=== PATIENT | female | born 1955 | race Caucasian/White ===

== ENCOUNTER 2017-02-02 15:07 | Emergency (ER) | payer MEDICARE ==
[2017-02-02 16:18] LABS: Hematocrit 41 % (35-47); Hemoglobin 13.4 g/dl (12.0-16.0); Mean Corpuscular HGB Conc 33 g/dl (31-36); Mean Corpuscular Hemoglobin 28 pg (27-31); Mean Corpuscular Volume 86 fL (80-97); Mean Platelet Volume 8 um3 (7.4-10.4); Red Blood Count 4.73 10^6/ul (4.0-5.4); Red Cell Distribution Width 14 % (10.5-15)
--- NOTE | 2017-02-02 16:32 | RAD ---
HISTORY: Chest pain COMPARISONS: June 28, 2014 VIEWS:1: Single frontal portable view of the chest at 4:16 PM FINDINGS: LINES AND TUBES: None. CARDIOMEDIASTINAL SILHOUETTE: The cardiomediastinal silhouette is normal for portable technique. PLEURA: The costophrenic angles are sharp. No pleural abnormalities are noted. LUNG PARENCHYMA: The lungs are clear. ABDOMEN: The upper abdomen is clear. There is no subphrenic gas. BONES AND SOFT TISSUES: The patient is status post spinal stabilization surgery IMPRESSION: NO ACTIVE CARDIOPULMONARY DISEASE.
[2017-02-02 16:33] LABS: Albumin 3.5 g/dL (3.2-5.2); BUN/Creatinine Ratio 19.5 (8-20); Calcium 9.3 mg/dL (8.6-10.3); EGFR African American 62.5 (>60); EGFR Non-African American 48.6 (>60); Globulin 2.5 g/dL (2-4); Magnesium 1.8 mg/dL (1.9-2.7); Potassium 3.1 mmol/L (3.5-5.0); Total Bilirubin 0.9 mg/dL (0.2-1.0)
[2017-02-02] MEDS ORDERED: Magnesium Oxide TAB* 400 MG PO ONE ×2 (16:41→18:22)
[2017-02-02 18:02] LABS: T4 7.74 mcg/mL (6.09-12.23)
[2017-02-02 18:03] LABS: TSH (Thyroid Stimulating Horm) 2.94 mcIU/mL (0.34-5.60)
[2017-02-02] MEDS ORDERED: Potassium Chlor TAB* 20 MEQ TAB.ER PO ONE (18:22)
[2017-02-02 18:49] VITALS: BP 124/83
--- NOTE | 2017-02-02 18:54 | ED ---
All Sanchez Billy, scribed for Blade Blair MD on 02/02/17 at 1530 . HPI Chest Pain - HPI Summary HPI Summary: Patient is a 61 year-old female coming to [facility] for evaluation of chest heaviness/pressure since 0800 this morning. She also reports milds shortness of breath and nausea, but no vomiting. At this time, her chest pressure has improved; it was 7/10 at onset, but feels much better now. However, she feels pressure in her head, severity 9/10. She was recently tapered off of prednisone , and she reports that she has had similar episodes in the past when she stops prednisone, but today's symptoms are the worst that they have ever been. - History of Current Complaint Chief Complaint: EDChestPainROMI Time Seen by Provider: 02/02/17 15:25 Hx Obtained From: Patient Onset/Duration: Started Hours Ago Timing: Constant Initial Severity: Moderate Current Severity: Moderate Pain Intensity: 7 Pain Scale Used: 0-10 Numeric Character: Heaviness, Pressure/Squeezing Aggravating Factor(s): Nothing Alleviating Factor(s): Nothing Associated Signs and Symptoms: Positive: Chest Pain, Headaches, Shortness of Breath, Nausea. Negative: Vomiting - Allergy/Home Medications Allergies/Adverse Reactions: Allergies Allergy/AdvReac Type Severity Reaction Status Date / Time Hydrocodone Allergy Rash Verified 02/02/17 15:13 Tramadol [From Ultram] Allergy itch Verified 02/02/17 15:13 AGUSTO Inhibitors AdvReac Itching Verified 02/02/17 15:13 PMH/Surg Hx/FS Hx/Imm Hx Endocrine/Hematology History: Denies: Hx Diabetes, Hx Thyroid Disease Cardiovascular History: Reports: Hx Angina - PRESSURE, Hx Hypercholesterolemia, Hx Hypertension Denies: Hx Myocardial Infarction, Hx Pacemaker/ICD Respiratory History: Reports: Hx Asthma - Seasonal Denies: Hx Chronic Obstructive Pulmonary Disease (COPD) GI History: Reports: Hx Gastroesophageal Reflux Disease, Hx Irritable Bowel Denies: Hx Ulcer, Other GI Disorders History: Reports: Hx Kidney Stones, Other Problems/Disorders - hx stones most recent 2 yrs ago Musculoskeletal History: Reports: Hx Back Problems Sensory History: Reports: Hx Contacts or Glasses, Hx Hearing Aid Opthamlomology History: Reports: Hx Contacts or Glasses Neurological History: Reports: Other Neuro Impairments/Disorders Psychiatric History: Denies: Hx Panic Disorder - Surgical History Surgery Procedure, Year, and Place: tubal ligation 18, stent placement for kidney stones,tubes in ears. Back surgery, T9-L5 for flat back syndrome Infectious Disease History: No Infectious Disease History: Denies: Hx Hepatitis, Hx Human Immunodeficiency Virus (HIV), Traveled Outside the [place] in Last 30 Days - Family History Known Family History: Negative: Hypertension, Diabetes - Social History Alcohol Use: None Substance Use Type: Reports: None Smoking Status (MU): Never Smoked Tobacco Review of Systems Negative: Skin Diaphoresis Positive: Chest Pain Positive: Shortness Of Breath Positive: Nausea. Negative: Vomiting, Diarrhea Positive: Headache All Other Systems Reviewed And Are Negative: Yes Physical Exam - Summary Physical Exam Summary: VITAL SIGNS: Reviewed. GENERAL: Patient is a well developed and nourished female who is lying comfortable in the stretcher. Patient is not in any acute respiratory distress. HEAD AND FACE: No signs of trauma. No ecchymosis, hematomas or skull depressions. No sinus tenderness. EYES: PERRLA, EOMI x 2, No injected conjunctiva, no nystagmus. EARS: Hearing grossly intact. Ear canals and tympanic membranes are within normal limits. MOUTH: Oropharynx within normal limits. NECK: Supple, trachea is midline, no adenopathy, no JVD, no carotid bruit, no c- spine tenderness, neck with full ROM. CHEST: Symmetric, no tenderness at palpation LUNGS: Clear to auscultation bilaterally. No wheezing or crackles. CVS: Regular rate and rhythm, S1 and S2 present, no murmurs or gallops appreciated. ABDOMEN: Soft, non-tender. No signs of distention. No rebound no guarding, and no masses palpated. Bowel sounds are normal. EXTREMITIES: FROM in all major joints, no edema, no cyanosis or clubbing. NEURO: Alert and oriented x 3. No acute neurological deficits. Speech is normal and follows commands. SKIN: Dry and warm Triage Information Reviewed: Yes Vital Signs On Initial Exam: Initial Vitals Temp Pulse Resp BP Pulse Ox 98.2 F 85 18 114/72 100 02/02/17 15:09 02/02/17 15:09 02/02/17 15:09 02/02/17 15:02/02/17 15:09 Vital Signs Reviewed: Yes Diagnostics - Vital Signs Vital Signs Temp Pulse Resp BP Pulse Ox 02/02/17 15:09 98.2 F 85 18 114/72 100 - Laboratory Lab Results: Lab Results 02/02/17 02/02/17 02/02/17 Range/Units 16:06 16:06 16:06 WBC 13.0 H (3.5-10.8) 10^3/ul RBC 4.73 (4.0-5.4) 10^6/ul Hgb 13.4 (12.0-16.0) g/dl Hct 41 (35-47) % MCV 86 (80-97) fL MCH 28 (27-31) pg MCHC 33 (31-36) g/dl RDW 14 (10.5-15) % Plt Count 282 (150-450) 10^3/ul MPV 8 (7.4-10.4) um3 Neut % (Auto) 71.6 (38-83) % Lymph % (Auto) 16.6 L (25-47) % [place] % (Auto) 10.6 H (1-9) % Eos % (Auto) 0.9 (0-6) % Baso % (Auto) 0.3 (0-2) % Absolute Neuts (auto) 9.3 H (1.5-7.7) 10^3/ul Absolute Lymphs (auto) 2.2 (1.0-4.8) 10^3/ul Absolute Monos (auto) 1.4 H (0-0.8) 10^3/ul Absolute Eos (auto) 0.1 (0-0.6) 10^3/ul Absolute Basos (auto) 0 (0-0.2) 10^3/ul Absolute Nucleated RBC 0 10^3/ul Nucleated RBC % 0 Sodium 137 (133-145) mmol/L Potassium 3.1 L (3.5-5.0) mmol/L Chloride 100 L (101-111) mmol/L Carbon Dioxide 31 (22-32) mmol/L Anion Gap 6 (2-11) mmol/L BUN 22 (6-24) mg/dL Creatinine 1.13 H (0.51-0.95) mg/dL Est GFR ( Amer) 62.5 (>60) Est GFR (Non-Af Amer) 48.6 (>60) BUN/Creatinine Ratio 19.5 (8-20) Glucose 103 H (70-100) mg/dL Lactic Acid 0.9 (0.5-2.0) mmol/L Calcium 9.3 (8.6-10.3) mg/dL Magnesium 1.8 L (1.9-2.7) mg/dL Total Bilirubin 0.90 (0.2-1.0) mg/dL AST 11 L (13-39) U/L ALT 12 (7-52) U/L Alkaline Phosphatase 51 (34-104) U/L Total Creatine Kinase 29 (10-223) U/L CK-MB (CK-2) 1.3 (0.6-6.3) ng/mL Troponin I 0.00 (<0.04) ng/mL B-Natriuretic Peptide ( - 100) pg/mL Total Protein 6.0 L (6.4-8.9) g/dL Albumin 3.5 (3.2-5.2) g/dL Globulin 2.5 (2-4) g/dL Albumin/Globulin Ratio 1.4 (1-3) TSH Pending Thyroxine (T4) Pending 02/02/17 Range/Units 16:06 WBC (3.5-10.8) 10^3/ul RBC (4.0-5.4) 10^6/ul Hgb (12.0-16.0) g/dl Hct (35-47) % MCV (80-97) fL MCH (27-31) pg MCHC (31-36) g/dl RDW (10.5-15) % Plt Count (150-450) 10^3/ul MPV (7.4-10.4) um3 Neut % (Auto) (38-83) % Lymph % (Auto) (25-47) % [place] % (Auto) (1-9) % Eos % (Auto) (0-6) % Baso % (Auto) (0-2) % Absolute Neuts (auto) (1.5-7.7) 10^3/ul Absolute Lymphs (auto) (1.0-4.8) 10^3/ul Absolute Monos (auto) (0-0.8) 10^3/ul Absolute Eos (auto) (0-0.6) 10^3/ul Absolute Basos (auto) (0-0.2) 10^3/ul Absolute Nucleated RBC 10^3/ul Nucleated RBC % Sodium (133-145) mmol/L Potassium (3.5-5.0) mmol/L Chloride (101-111) mmol/L Carbon Dioxide (22-32) mmol/L Anion Gap (2-11) mmol/L BUN (6-24) mg/dL Creatinine (0.51-0.95) mg/dL Est GFR ( Amer) (>60) Est GFR (Non-Af Amer) (>60) BUN/Creatinine Ratio (8-20) Glucose (70-100) mg/dL Lactic Acid (0.5-2.0) mmol/L Calcium (8.6-10.3) mg/dL Magnesium (1.9-2.7) mg/dL Total Bilirubin (0.2-1.0) mg/dL AST (13-39) U/L ALT (7-52) U/L Alkaline Phosphatase (34-104) U/L Total Creatine Kinase (10-223) U/L CK-MB (CK-2) (0.6-6.3) ng/mL Troponin I (<0.04) ng/mL B-Natriuretic Peptide 13 ( - 100) pg/mL Total Protein (6.4-8.9) g/dL Albumin (3.2-5.2) g/dL Globulin (2-4) g/dL Albumin/Globulin Ratio (1-3) TSH Thyroxine (T4) Result Diagrams: 02/02/17 16:06 02/02/17 16:06 Lab Statement: Any lab studies that have been ordered have been reviewed, and results considered in the medical decision making process. - Radiology CXR Xray Interpretation: No Acute Changes Radiology Interpretation Completed By: Radiologist - EKG 1795 EKG Interpretation: NSR 71 bpm, no STEMI Chest Pain Course/Dx - Course Assessment/Plan: Patient is a 61 year-old female coming to [facility] for evaluation of chest heaviness/pressure since 0800 this morning. She also reports milds shortness of breath and nausea, but no vomiting. At this time, her chest pressure has improved; it was 7/10 at onset, but feels much better now. However , she feels pressure in her head, severity 9/10. She was recently tapered off of prednisone, and she reports that she has had similar episodes in the past when she stops prednisone, but today's symptoms are the worst that they have ever been. Bloodwork WNL except for WBC of 13, potassium level of 3.1, creatinine of 1.1, glucose of 103. Troponin is 0.00. Second troponin is also 0.00. CXR shows no active cardiopulmonary disease. The patient reported that her symptoms are similar to when she has previously taken off of steroids, and since troponin is negative, I do not believe her symptoms are associated with ACS. She is asymptomatic at this point. Therefore, she will be discharged home to follow up with PCP. I discussed all the findings and test results with the patient. Patient was instructed to return to the emergency room immediately if any of the symptoms return or worsens. Plan of care was discussed with the patient and understands and agrees. All questions were answered at patient satisfaction. There were no further complaints or concerns. Lung exam before discharge: CTA B/L. Good air exchange. No wheezing or crackles heard. CVS: S1 and S2 present. No murmurs appreciated. Patient is alert and oriented x 3. Patient is hemodynamically stable. Patient will be discharged home with follow up PCP in the next 2-3 days - Chest Pain Differential Diagnosis/HQI/PQRI: Acute ID, ACS, Angina, CHF, Chest Wall, GI Disease, Lower Respiratory Infection - Diagnoses Provider Diagnoses: Atypical chest pain Discharge - Discharge Plan Condition: Stable Disposition: HOME Patient Education Materials: Noncardiac Chest Pain (ED) Referrals: Josee Al MD [Primary Care Provider] - The documentation as recorded by the All cole Billy accurately reflects the service I personally performed and the decisions made by me, Blade Blair MD.
== END 2017-02-02 19:00 | disposition home or self-care (01) ==
LOC: ED 15:07
DX: R07.89 Other chest pain (principal); I10 Essential (primary) hypertension; E78.00 Pure hypercholesterolemia, unspecified
CPT/HCPCS: 36415; 71010; 80053; 82550; 82553; 83605; 83735; 83880; 84436; 84443; 84484; 85025; 93005; 99283; A9270-GY

== ENCOUNTER 2019-03-16 11:33 | Emergency (ER) | payer MEDICARE, OTHER ==
--- NOTE | 2019-03-16 13:41 | UC ---
Back Pain HPI - HPI Summary HPI Summary: 63-year-old female comes in with chief complaint of back pain. Patient has chronic neck and lower back pain. She's had recurrent thoracic back pain. Patient reports about 3 weeks ago she is been having lower thoracic back pain has been getting worse. It's midline. She denies any shortness of breath or anterior chest pain. Pain is worse with twisting turning bending. It is not worse with taking a deep breath. No rash. No upper respiratory tract infection symptoms of fevers no chills. No pedal edema no calf tenderness no history of pulmonary emboli or deep venous thrombosis. Patient has had spinal surgery in the past. Patient has chronic neck pain is been going on for at least 6 months and she gets some pain shooting down into both of her arms. - History of Current Complaint Chief Complaint: UCBackPain Stated Complaint: BACK INJURY Time Seen by Provider: 03/16/19 13:22 Pain Intensity: 10 - Allergies/Home Medications Allergies/Adverse Reactions: Allergies Allergy/AdvReac Type Severity Reaction Status Date / Time AGUSTO Inhibitors Allergy Itching Verified 03/16/19 12:30 albuterol Allergy Vomiting Verified 03/16/19 12:36 atorvastatin Allergy Vomiting Verified 03/16/19 12:36 codeine Allergy Unknown Verified 03/16/19 12:36 Reaction Details hydrocodone Allergy Rash Verified 03/16/19 12:30 tramadol [From Ultram] Allergy Itching Verified 03/16/19 12:30 Home Medications: Home Medications Chlorpheniramine Maleate [Chlorphen Sr] 1 tab PO DAILY 03/16/19 [History Confirmed 03/16/19] Fexofenadine (NF) [Dhara (NF)] 1 tab PO DAILY 03/16/19 [History Confirmed 10/04] Fluticasone NASAL SPRAY 50MCG* [Flonase NASAL SPRAY 50MCG*] 1 spray INH DAILY [History Confirmed 03/16/19] PARoxetine HCl [Paxil] 1 tab PO DAILY 03/16/19 [History Confirmed 03/16/19] Pantoprazole Sodium 40 mg PO DAILY 03/16/19 [History Confirmed 03/16/19] Trazodone HCl 50 mg PO DAILY 03/16/19 [History Confirmed 03/16/19] raNITIdine HCl [Ranitidine HCl] 300 mg PO DAILY 03/16/19 [History Confirmed 10/04] PMH/Surg Hx/FS Hx/Imm Hx Previously Healthy: Yes GI/ History: Gastroesophageal Reflux - Surgical History Surgical History: Yes Surgery Procedure, Year, and Place: tubal ligation 18, stent placement for kidney stones,tubes in ears. Back surgery, T9-L5 for flat back syndrome. coclear implant - Family History Known Family History: Negative: Hypertension, Diabetes - Social History Alcohol Use: None Substance Use Type: None Smoking Status (MU): Never Smoked Tobacco - Immunization History Most Recent Influenza Vaccination: never Most Recent Tetanus Shot: 2012 Most Recent Pneumonia Vaccination: never Review of Systems All Other Systems Reviewed And Are Negative: Yes Constitutional: Positive: Negative Skin: Positive: Negative Eyes: Positive: Negative ENT: Positive: Negative Respiratory: Positive: Negative Cardiovascular: Positive: Other - SEE HPI Gastrointestinal: Positive: Negative Motor: Positive: Negative Neurovascular: Positive: Negative Musculoskeletal: Positive: Other: - SEE HPI Neurological: Positive: Negative Psychological: Positive: Negative Is Patient Immunocompromised?: No Physical Exam Triage Information Reviewed: Yes Appearance: Well-Appearing, Well-Nourished, Pain Distress - MILD WITH ROM Vital Signs: Initial Vital Signs Temp 98.1 F 03/16/19 12:23 Pulse 72 03/16/19 12:23 Resp 18 03/16/19 12:23 BP 137/92 03/16/19 12:23 Pulse Ox 97 03/16/19 12:23 Vital Signs Reviewed: Yes Eye Exam: Normal Eyes: Positive: Conjunctiva Clear Neck: Positive: Supple Respiratory: Positive: Lungs clear, Normal breath sounds, No respiratory distress Cardiovascular: Positive: RRR Abdomen Description: Positive: Nontender, Soft Musculoskeletal: Positive: Other: - Patient is tender to palpation lower thoracic spine in the midline. No rash. Pain is worse with twisting turning bending. Patient is also mildly tender in the low back which she reports is chronic. Neurological: Positive: Muscle Tone Normal Psychological: Positive: Age Appropriate Behavior Skin Exam: Normal Skin: Positive: Other - NO RASH Back Pain Course/Dx - Course Course Of Treatment: Patient Name: AKIKO ATWOOD Medical Record#: [id number] Ordering Physician: Morris Hernandez MD Acct.#: [id number] : 1955 Age: 63 Sex: F Location: [facility] Exam Date: 03/16/19 133 ADM Status: REG ER Order Information: THORACIC SPINE 2 VWS Accession Number: [id number] CPT: 73752 INDICATION: Back pain. COMPARISON: Comparison is made with a prior study from December 15, 2009. TECHNIQUE: AP and lateral films of the dorsal spine were obtained. FINDINGS: The vertebra are in normal alignment. No fracture is seen. The patient is status post posterior spinal fusion of the lower dorsal and lumbar spine as previously described. There is moderate to severe degenerative disc disease noted throughout the dorsal spine. IMPRESSION: 1. DEGENERATIVE DISC DISEASE. 2. POSTSURGICAL CHANGES. <Electronically signed by Faraz Donato MD in OV> 03/16/19 1433 Patient Name: AKIKO ATWOOD Medical Record#: [id number] Ordering Physician: Morris Hernandez MD Acct.#: [id number] : 1955 Age: 63 Sex: F Location: [facility] Exam Date: 03/16/19 1335 ADM Status: REG ER Order Information: SP LUMBARSACRAL 4+ VWS Accession Number: [id number] CPT: 67916 INDICATION: Back pain. COMPARISON: Comparison is made with a prior MRI of the lumbar spine from May 20, 2013. TECHNIQUE: 5 views of the lumbar spine were obtained including lateral, oblique , AP and a coned-down lateral view of the lumbar sacral junction. FINDINGS: The patient is status post posterior spinal fusion from T9 through L5. In addition there are iliac wing screws present on both sides. There appears to be osseous fusion of the posterior elements. This appears to stabilize a fracture of the L2 vertebral body which appears moderate in degree with more compression of the posterior aspect of the vertebral body. There is moderate to severe diffuse degenerative disc disease. IMPRESSION: STATUS POST POSTERIOR SPINAL FUSION DESCRIBED WHICH APPEARS TO STABILIZE A FRACTURE OF THE L2 VERTEBRAL BODY. RECOMMEND CLINICAL CORRELATION. <Electronically signed by Faraz Donato MD in OV> 03/16/19 1430 I discussed the x-rays with the patient. No acute fracture seen. Patient has seen an orthopedist in [place] Dr. Shah for prior surgery. She has chronic neck pain. She tells me she is planning on following up with him for the chronic neck pain and I recommended following up with him also for this thoracic back pain. Locally she can follow-up with sports medicine however with only surgery she's had in her back I recommend following up with her orthopedist. Patient has no anterior chest pain no shortness of breath no abdominal pain. I let her know if things got worse with pain weakness numbness difficulty controlling urine or bowels or if anything else changing she needs to get reevaluated right away. - Differential Dx/Diagnosis Provider Diagnosis: Thoracic back pain Discharge - Sign-Out/Discharge Documenting (check all that apply): Patient Departure All imaging exams completed and their final reports reviewed: Yes - Discharge Plan Condition: Stable Disposition: HOME Prescriptions: Cyclobenzaprine TAB* [Flexeril 10 MG TAB*] 10 mg PO TID PRN #15 tab MDD 3 PRN Reason: Pain Patient Education Materials: Back Pain (ED) Referrals: Viky ACE,Tod Keita [Medical Doctor] - [facility] [Provider Group] Additional Instructions: FOLLOW UP WITH YOUR ORTHOPEDIST, DR DERAS. YOU CAN ALSO FOLLOW UP LOCALLY WITH SPORTS MEDICINE. GET RECHECKED SOONER IF YOUR CONDITION WORSENS; PAIN, WEAKNESS, NUMBNESS, SHORTNESS OF BREATH, YOU FEEL ILL, DIFFICULTY CONTROLLING BOWEL OR BLADDER OR ANY QUESTIONS OR CONCERNS. - Billing Disposition and Condition Condition: STABLE Disposition: Home
[2019-03-16 14:52] VITALS: BP 139/91
== END 2019-03-16 15:00 | disposition home or self-care (01) ==
LOC: UCEAST 11:33
DX: M54.6 Pain in thoracic spine (principal)
CPT/HCPCS: 72070; 72110; 99212; G0463